=== PATIENT | male | born 1990 | race African-American/Black ===

== ENCOUNTER 2025-09-26 23:09 | Emergency (ER) | payer MEDICAID ==
[~2025-09-26] VITALS: Ht 165.1 cm; Wt 68.0 kg
[2025-09-26 23:11] VITALS: TEMP 98.2; O2SAT 98
[2025-09-26 23:59] LABS: BASOPHILS % 0.3 % (0.0-2.0); EOSINOPHILS % 2.9 % (0.0-5.0); HEMATOCRIT. 44.3 % (42.0-52.0); HEMOGLOBIN. 14.6 g/dL (14.0-18.0); LYMPHOCYTES % 28.4 % (20.0-50.0); MEAN PLATELET VOLUME 7.1 fl (7.4-10.4); MONOCYTES % 6.9 % (2.0-8.0); NEUTROPHILS % 61.5 % (40.0-76.0); PLATELET 314 x1000/uL (130-400); RED BLOOD CELL COUNT 4.98 mill/uL (4.7-6.1); RED CELL DISTRIBUTION WIDTH 14.2 % (11.6-14.6)
[2025-09-27 00:16] LABS: CREATININE 0.9 mg/dL (0.6-1.3); UREA NITROGEN BLOOD 11 mg/dL (9-23)
[2025-09-27 00:18] LABS: TROPONIN I HIGH SENSITIVITY 4 ng/L (3.0-53)
[2025-09-27] MEDS: CYCLOBENZAPRINE 10MG TABLET PO ONE (00:36)
[2025-09-27] MEDS: KETOROLAC 15MG/ML VIAL IM ONE (00:37)
[2025-09-27] MEDS: KETOROLAC 30MG/ML VIAL IM ONE (01:54)
[2025-09-27] MEDS ORDERED: NAPR-1176 MT (02:31)
[2025-09-27] MEDS ORDERED: CYCL10TA21 MT (02:31)
[2025-09-27 03:06] VITALS: BP 122/79; PULSE 86; RESP 18; O2SAT 100
== END 2025-09-27 03:07 | disposition home or self-care (01) ==
LOC: ER 23:09
DX: M54.6 Pain in thoracic spine (principal); R07.1 Chest pain on breathing; R05.9 Cough, unspecified
CPT/HCPCS: 99284; 71045; 80048; 85025; 85379; 84484; 36415; 96372; J1885 ×2